=== PATIENT | male | born 1995 | race Caucasian/White ===

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

== ENCOUNTER 2018-11-10 15:54 | Emergency (ER) | payer OTHER ==
[~2018-11-10] VITALS: Ht 175.3 cm; Wt 97.0 kg
[~2018-11-10 15:54] MED LIST changes: +IBUP-1542 PO
[2018-11-10 16:05] VITALS: BP 131/84; PULSE 57; RESP 16; Ht 175.3 cm; Wt 97.0 kg
[2018-11-10] MEDS ORDERED: KETOROLAC 30 MG INJ IM STA (16:31)
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
== END 2018-11-10 16:48 | disposition home or self-care (01) ==
LOC: FTE 15:54
DX: M79.672 Pain in left foot (principal); M25.561 Pain in right knee
CPT/HCPCS: 96372; J1885; Z7502